=== PATIENT | male | born 1990 | race African-American/Black ===

== ENCOUNTER 2020-12-26 22:09 | Emergency (ER) | payer OTHER ==
[~2020-12-26] VITALS: Ht 182.9 cm; Wt 85.7 kg
[2020-12-26] MEDS ORDERED: OMEPRAZOLE 20 M20 M1 PO (22:19)
[2020-12-26] MEDS ORDERED: PREDNISONE50 MG PO (23:16)
[2020-12-26 23:21] VITALS: BP 125/70
--- NOTE | 2020-12-27 08:55 | EKG ---
[place] [address] ELECTROCARDIOGRAM REPORT Name: JIMMY SALES Room: [facility]#: [id number] Admission: 12/26/20 Attend Phys: Discharge: 12/26/20 Date of : 89 Date of Service: 12/26/202216 Report #: [id number] THIS REPORT FOR: //name// [facility] ED Test Date: 2020-12-26 Test Time: 22:17:56 Pat Name: JIMMY HENRRY Department: Room: Gender: Specimen Transporter: GARCIA : 1990 Requested By: Irasema Evans Order Number: [id number] MD: Raffaele German Measurements Intervals [place] Rate: 53 P: 70 [place]: 181 QRS: 76 QRSD: 100 T: 28 QT: 398 QTc: 374 Interpretive Statements Sinus bradycardia No previous ECG available for comparison Electronically Signed On 12-27-2020 8:55:41 [employer]SEM[employer] by Raffaele German [email or web address] <ELECTRONICALLY SIGNED> By: Raffaele German MD, [facility] 12/27/20 0855 16 16 Raffaele German MD, FACC /EPI
== END 2020-12-26 23:22 | disposition home or self-care (01) ==
LOC: M.ERS 22:09
DX: R42 Dizziness and giddiness (principal); Z20.822 Contact with and (suspected) exposure to COVID-19; Z79.899 Other long term (current) drug therapy